=== PATIENT | male | born 1975 | race Caucasian/White ===

== ENCOUNTER 2016-12-07 16:20 | Emergency (ER) | payer SELFPAY ==
[~2016-12-07] VITALS: Ht 188 cm; Wt 88.6 kg
[2016-12-07 16:23] VITALS: BP 129/80; PULSE 79; RESP 16; O2SAT 100
--- NOTE | 2016-12-07 17:32 | ED.REPORT ---
HPI-Rash / Abscess Date of Service Dec 07, 2016 ED Provider: Paulo Horowitz MD 41-year-old male with a recent history of intramuscular heroin use presents with a chief complaint of an abscess on his left arm and his right leg. He reports that the abscess on his right leg began draining clear fluid about 2 days ago. Denies fevers, chills, malaise, abdominal pain, vomiting. Denies comorbidities. Nursing Notes Stated Complaint: ABSCESS ON LEFT ARM AND RIGHT LEG Chief Complaint: Skin Rash/Abscess Nursing Notes Reviewed: Yes Allergies: Coded Allergies: No Known Allergies (Unverified , 12/07/16) Scheduled Clindamycin (Clindamycin) 300 Mg Capsule 300 MG PO QID General Time Seen by MD: 17:31 Chief Complaint Abscess Review of Systems Review of Systems Note: Negative unless stated otherwise in history of present illness Physical Exam General: Well appearing, well developed, well nourished, no acute distress. Head: Atraumatic, normocephalic. Eyes: No scleral icterus or injection. No discharge. Vision grossly intact. ENT: Voice clear, hearing grossly intact. Respiratory: Regular rate and rhythm. Breath sounds present, clear to auscultation and equal bilaterally. No respiratory distress. No increased work of breathing, speaks in complete sentences. Cardiovascular: Regular rate and rhythm, without murmur, gallop or rub. No pedal edema. Gastrointestinal: Abdomen flat and non-tender without guarding or rebound. Bowel sounds normoactive. Skin: Warm and dry. Right shoulder: 3 cm area of induration with central fluctuance over the deltoid. Surrounded by erythema that extends to the mid biceps. Left shoulder: 4 cm area of induration with central fluctuance over the deltoid Right thigh: 1 cm open sore with purulent discharge on anterior lateral thigh surrounded by induration. This is superior to a 4 cm area of fluctuance surrounded by induration and erythema extending distally approximately 3 cm. Neurological: Grossly nonfocal. Psychological: Alert and oriented. Speech appropriate, linear and logical. Behavior appropriate. Initial Vital Signs Vital Signs (First) Date Time Temp Pulse Resp B/P Pulse Ox O2 Delivery O2 Flow Rate FiO2 12/07/16 16:23 36.3 79 16 129/80 100 Room Air Initial VS: Vital signs normal Procedures Incision & Drainage Abscess I & D Abscess: Abscess on the left shoulder over the deltoid: Prepared skin with alcohol swab and injected approximately 3 mL 1% lidocaine with epinephrine using a 27-gauge needle. Repair skin with ChloraPrep, initiated 1 cm vertical incision using a #11 blade. Produced a large amount of purulent discharge. Collected sample for culture. Probe with scissors to break up loculations, producing more discharge. Packed with 1/2 inch plain gauze. Dressed with antibiotic ointment and gauze dressing. Patient tolerated the procedure well, no complications. I & D Abscess: Abscess on the right shoulder over the deltoid: Prepared skin with alcohol swab and injected approximately 3 mL 1% lidocaine with epinephrine using a 27-gauge needle. Repair skin with ChloraPrep, initiated 1 cm vertical incision using a #11 blade. Produced a moderate amount of purulent discharge. Collected sample for culture. Probe with scissors to break up loculations, producing slightly more discharge. Packed with 1/2 inch plain gauze. Dressed with antibiotic ointment and gauze dressing. Patient tolerated the procedure well, no complications. I & D Abscess: Abscess on the lateral right thigh: Prepared skin with alcohol swab and injected approximately 6 mL 1% lidocaine with epinephrine using a 27-gauge needle. Repair skin with ChloraPrep, initiated 1.5 cm vertical incision using a #11 blade. Produced a large amount of purulent discharge. Collected sample for culture. Probe with scissors to break up loculations, producing more discharge. Packed with 1/2 inch plain gauze. Dressed with antibiotic ointment and gauze dressing. Patient tolerated the procedure well, no complications. Re-Eval/Medical Decision Med Decision/Clinical Course 41-year-old male with history of intramuscular heroin use presenting with abscesses on his shoulders and right thigh. There appears to be a moderate amount of cellulitis around the abscess on his right shoulder as well as his right thigh There is also an open sore on his right thigh producing purulent discharge. No indication of systemic infection. Drained all abscess, packed with gauze, dressed with antibiotic ointment and gauze. No complications. The patient did not wish me to address the open sore on his thigh. It appears to be draining on its own and I do not find this completely unreasonable. I discussed cessation of heroin with the patient. He expressed interest but did not wish to speak with our social insurance specialist. I provided contact information for ideal option. Provided a prescription for clindamycin out of consideration for cellulitis. I asked them to return emergency Department tomorrow night to have the packing removed and the wounds reassessed. Provided a referral for primary care follow- up as well as emergency return precautions. The patient understands and agrees with the plan. Discharge & Departure Impression: Primary Impression: Abscess of multiple sites Additional Impression: Heroin abuse Disposition: Home Discharge Condition All VS Reviewed: Yes Condition: Stable Patient Instructions: Abscess Incision and Drainage (ED) Additional Instructions: Evaluation for abscesses in the emergency department. We drained 3 large abscesses in both your shoulders and your right leg, packed with gauze and dressed them. Please leave the dressings on for the next 2 days and return to emergency department tomorrow evening to have the packing removed and the wounds checked. I will give you a prescription for clindamycin to be taken 4 times a day for 10 days. I sent samples of the pus to the lab for analysis. You will be notified if we need to change your antibiotics. Be vigilant for signs of worsening infection including fever, increasing pain and redness, swelling, discharge. The pain is best treated with 400 mg of ibuprofen (Advil, Motrin) every 6 hours , or 1000 mg of acetaminophen (Tylenol) every 6 hours. These drugs can be taken at the same time for more severe pain. Provided a referral for primary care follow-up. Please contact them soon as possible to establish care. It is important that you stop using heroin. Continuing use of heroin will have serious consequences which may include . I will provide you contact information for ideal option, a clinic that can medically help you stop using heroin. Return to emergency department for any new or worsening symptoms including signs of infection, fever, feeling sick, abdominal pain, vomiting. Referrals: [facility]ising Provider for APC: Paulo Horowitz MD Attending Statement Attending attestation: I saw this patient in conjunction with Rodrick Castro PA-C. I was present for all parekh portions of the history taking and physical examination. I agree with the workup, evaluation, treatment and disposition. Paulo Wheeler MD, MD Dec 07, 2016 17:32 Rodrick Castro PA-C Dec 07, 2016 19:04
[2016-12-07] MEDS ORDERED: Lidocaine 1%-Epi 1:100,000 20 mL Inj ONE (18:00)
[2016-12-07] MEDS ORDERED: HYDROcodone-APAP 5-325 mg Tablet PO ONE (18:55)
[2016-12-07] MEDS ORDERED: CLIN-78 PO (19:07)
== END 2016-12-07 19:56 | disposition home or self-care (01) ==
LOC: SED 16:20
DX: L02.414 Cutaneous abscess of left upper limb (principal); L02.413 Cutaneous abscess of right upper limb; L02.415 Cutaneous abscess of right lower limb; F11.10 Opioid abuse, uncomplicated